=== PATIENT | male | born 1930 | race Caucasian/White ===

== ENCOUNTER 2017-05-20 15:55 | Inpatient (IN) | payer MEDICARE, OTHER ==
[~2017-05-20] VITALS: Ht 185.4 cm; Wt 109.5 kg
[2017-05-20 19:08] LABS: Urine Bacteria NONE SEEN /hpf (None Seen); Urine Blood Negative /uL (Negative); Urine Mucus FEW (None Seen); Urine Specific Gravity 1.023 (1.001-1.035); Urine WBC 3 /hpf (0 - 3)
[2017-05-20 19:12] LABS: Basophils # (auto) 0.2 uL; Basophils % (auto) 1.4 % (0.0-2.0); Eosinophils # (auto) 0.3 uL; Eosinophils % (auto) 2.9 % (0.0-7.0); Hematocrit 43.4 % (41.0-53.0); Hemoglobin 14.6 g/dL (13.5-17.5); Mean Corpuscular Hemoglobin 31.9 pg (28.0-32.0); Mean Corpuscular Hgb Conc. 33.8 g/dL (32.0-36.0); Mean Corpuscular Volume 94.5 fL (80.0-100.0); Monocytes # (auto) 1.1 uL; Neutrophils # (auto) 8.2 uL; Neutrophils % (auto) 69.7 % (37.0-80.0); Nucleated Red Blood Cells % 0.1 %; Platelet Count (auto) 170 10^3/uL (140-450); Red Blood Cells 4.59 10^6/uL (4.5-5.90); Red Cell Distribution Width 14.7 % (11.8-14.3); White Blood Cell 11.7 10^3/uL (4.4-10.8)
[2017-05-20 19:29] LABS: INR 0.95 (0.9-1.15); Partial Thromboplastin Time 29.7 sec (22.64-33.71); Prothrombin Time 10.3 sec (9.37-12.3)
[2017-05-20 19:35] LABS: Alanine Aminotransferase 25 U/L (16-61); Albumin 3.4 g/dL (3.4-5.0); Alkaline Phosphatase 75 U/L (45-117); Anion Gap 8 (5-15); Aspartate Aminotransferase 18 U/L (15-37); BUN/Creatinine Ratio 17.4; Bilirubin, Total 0.6 mg/dL (0.2-1.0); Blood Urea Nitrogen 23 mg/dL (7-18); Calcium 8.2 mg/dL (8.5-10.1); Carbon Dioxide 27 mmol/L (21-32); Chloride 105 mmol/L (98-107); GFR African American 66 mL/min; GFR Non-African American 55 mL/min; Glucose 124 mg/dL (74-106); Magnesium 2.9 mg/dL (1.6-2.6); Potassium 4.7 mmol/L (3.5-5.1); Sodium 140 mmol/L (136-145); Total Protein 7.1 g/dL (6.4-8.2)
[2017-05-20] MEDS ORDERED: ETOMIDATE (2MG/ML) 20ML VIAL IV ONE ×2 (20:04→20:15)
[2017-05-20] MEDS ORDERED: HYDROmorphone HCL 2 MG/ML VL IV ONE (20:15)
[2017-05-20] MEDS ORDERED: ONDANSETRON HCL 4 MG/2 ML VIAL IV ONE (20:15)
[2017-05-20] MEDS ORDERED: MORPHINE SULFATE 10 MG/ML INJ 1ML SDV IV PRN (23:30)
[2017-05-20] MEDS ORDERED: ACETAMINOPHEN 500 MG TAB PO PRN (23:30)
[2017-05-20] MEDS ORDERED: HYDROcodone-ACET 5/325MG TAB PO PRN (23:30)
[2017-05-20] MEDS ORDERED: ONDANSETRON HCL 4 MG/2 ML VIAL IV PRN (23:30)
[2017-05-21] VITALS (7 sets, daily range): BP systolic 124–137; BP diastolic 63–72
[2017-05-21] MEDS ORDERED: ENOXAPARIN SOD 40 MG/0.4 ML SYRINGE SC SCH (10:00)
[2017-05-21] MEDS ORDERED: DABI75CA3 PO (10:11)
[2017-05-21] MEDS ORDERED: SIMV-8 PO (10:11)
[2017-05-21] MEDS ORDERED: FLUT250M2 INH (10:11)
[2017-05-21] MEDS ORDERED: OXY5T GT (10:11)
[2017-05-21] MEDS ORDERED: METO25TA5 PO (10:11)
[2017-05-21] MEDS ORDERED: BACL10TA PO (10:11)
[2017-05-21] MEDS ORDERED: LEVO137T3 PO (10:11)
[2017-05-21] MEDS ORDERED: ESOM40CA39 PO (10:11)
[2017-05-21] MEDS ORDERED: FLUT50SP (10:11)
[2017-05-21] MEDS ORDERED: TAMS0.4C36 PO (10:11)
[2017-05-21] MEDS ORDERED: GABA-521 PO (10:11)
[2017-05-21 11:21] LABS: Basophils # (auto) 0 uL; Basophils % (auto) 0.5 % (0.0-2.0); Eosinophils # (auto) 0.4 uL; Eosinophils % (auto) 3.9 % (0.0-7.0); Hemoglobin 13.9 g/dL (13.5-17.5); Lymphocytes # (auto) 2.4 uL; Lymphocytes % (auto) 23.7 % (10.0-50.0); Mean Corpuscular Hemoglobin 31.4 pg (28.0-32.0); Monocytes % (auto) 10.3 % (0.0-12.0); Neutrophils # (auto) 6.2 uL; Neutrophils % (auto) 61.6 % (37.0-80.0); Platelet Count (auto) 169 10^3/uL (140-450); Red Blood Cells 4.41 10^6/uL (4.5-5.90); Red Cell Distribution Width 14.9 % (11.8-14.3); White Blood Cell 10.1 10^3/uL (4.4-10.8)
[2017-05-21 11:36] LABS: BUN/Creatinine Ratio 22.8; Calcium 8.3 mg/dL (8.5-10.1); Potassium 4.6 mmol/L (3.5-5.1)
[2017-05-21] MEDS ORDERED: THROAT LOZENGES(CEPASTAT) MT PRN (13:45)
[2017-05-21] MEDS ORDERED: TAMSULOSIN HYDROCHLORIDE 0.4 MG CAP PO SCH (18:00)
[2017-05-21] MEDS ORDERED: GABAPENTIN 300 MG CAP PO SCH (18:30)
[2017-05-21] MEDS: METOPROLOL TARTRATE 25 MG TAB PO SCH (21:49)
[2017-05-21] MEDS: DABIGATRAN 75 MG CAP PO SCH (21:50)
[2017-05-21] MEDS ORDERED: ATORVASTATIN 20 MG TAB PO SCH (22:00)
[2017-05-22 04:54] VITALS: BP 138/57
[2017-05-22] MEDS ORDERED: LEVOTHYROXINE SODIUM 112 MCG TAB PO SCH (07:00)
[2017-05-22] MEDS ORDERED: LEVOTHYROXINE SODIUM 25 MCG TAB PO SCH (07:00)
[2017-05-22 08:00] VITALS: BP 138/57
[2017-05-22 09:00] VITALS: BP 107/60
[2017-05-22] MEDS: DABIGATRAN 75 MG CAP PO SCH (09:59)
[2017-05-22] MEDS: METOPROLOL TARTRATE 25 MG TAB PO SCH (09:59)
[2017-05-22] MEDS ORDERED: PANTOPRAZOLE 40 MG TAB PO SCH (10:00)
[2017-05-22 11:18] VITALS: BP 107/60
== END 2017-05-22 12:15 | disposition home or self-care (01) | DRG 563 ==
LOC: EDBD 15:55 → ER 15:55 → OVERFLOW 15:56 → CENTRAL 05-21 01:30
PROVIDERS: ADMIT Nurse Practitioner Family; ATTEND Family Medicine
PROC: 0RSKXZZ Reposition Left Shoulder Joint, External Approach (ICD-10-PCS; principal; 2017-05-20)
DX: S43.015A Anterior dislocation of left humerus, initial encounter (principal); E83.51 Hypocalcemia; G62.9 Polyneuropathy, unspecified; I48.91 Unspecified atrial fibrillation; E03.9 Hypothyroidism, unspecified; E78.00 Pure hypercholesterolemia, unspecified; I12.9 Hypertensive chronic kidney disease with stage 1 through stage 4 chronic kidney disease, or unspecified chronic kidney disease; S42.302A Unspecified fracture of shaft of humerus, left arm, initial encounter for closed fracture; I25.10 Atherosclerotic heart disease of native coronary artery without angina pectoris; J32.9 Chronic sinusitis, unspecified; J44.9 Chronic obstructive pulmonary disease, unspecified; N18.3 Chronic kidney disease, stage 3 (moderate); N40.0 Benign prostatic hyperplasia without lower urinary tract symptoms; Y93.89 Activity, other specified; W18.09XA Striking against other object with subsequent fall, initial encounter; Y92.009 Unspecified place in unspecified non-institutional (private) residence as the place of occurrence of the external cause; Z82.49 Family history of ischemic heart disease and other diseases of the circulatory system; Z95.0 Presence of cardiac pacemaker; Z88.0 Allergy status to penicillin; Z88.8 Allergy status to other drugs, medicaments and biological substances
CPT/HCPCS: 23650; 36415; 70450; 71045; 73020; 73030; 80048; 80053; 81001; 82962; 83735; 84484; 85025; 85610; 85730; 93005; 96372; 99152; 99291; J2405

== ENCOUNTER 2019-02-12 12:22 | Inpatient (IN) | payer MEDICARE, OTHER ==
[~2019-02-12] VITALS: Ht 188 cm; Wt 100.6 kg
[~2019-02-12 12:22] MED LIST: BACL10TA PO; DABI75CA5 PO; ESOM40CA39 PO; FLUT250M2 INH; FLUT50SP; GABA-521 PO; LEVO137T3 PO; METO25TA5 PO; OXY5T GT; SIMV-8 PO; TAMS0.4C36 PO
[2019-02-12] MEDS ORDERED: SODIUM CHLORIDE 0.9% 1,000 ML IV ONE (12:41)
[2019-02-12 13:27] LABS: Basophils # (auto) 0.1 uL; Basophils % (auto) 0.9 % (0.0-2.0); Eosinophils # (auto) 0.3 uL; Eosinophils % (auto) 2.1 % (0.0-7.0); Hematocrit 46.5 % (41.0-53.0); Hemoglobin 15.3 g/dL (13.5-17.5); Lymphocytes # (auto) 2.2 uL; Lymphocytes % (auto) 17.2 % (10.0-50.0); Mean Corpuscular Hemoglobin 31.7 pg (28.0-32.0); Mean Corpuscular Hgb Conc. 32.9 g/dL (32.0-36.0); Mean Corpuscular Volume 96.3 fL (80.0-100.0); Monocytes # (auto) 1.1 uL; Monocytes % (auto) 8.4 % (0.0-12.0); Neutrophils # (auto) 9.3 uL; Neutrophils % (auto) 71.4 % (37.0-80.0); Platelet Count (auto) 159 10^3/uL (140-450); Red Blood Cells 4.83 10^6/uL (4.5-5.90); White Blood Cell 13.1 10^3/uL (4.4-10.8)
[2019-02-12 13:42] LABS: Alanine Aminotransferase 29 U/L (16-61); Albumin 3.1 g/dL (3.4-5.0); Anion Gap 6 (5-15); Aspartate Aminotransferase 21 U/L (15-37); BUN/Creatinine Ratio 21.9; Blood Urea Nitrogen 25 mg/dL (7-18); Calcium 8.9 mg/dL (8.5-10.1); Carbon Dioxide 28 mmol/L (21-32); Chloride 107 mmol/L (98-107); GFR African American 78 mL/min; GFR Non-African American 64 mL/min; Glucose 101 mg/dL (74-106); INR 0.99 (0.9-1.15); Partial Thromboplastin Time 32.1 sec (23.64-32.05); Sodium 141 mmol/L (136-145)
[2019-02-12 13:46] LABS: Alkaline Phosphatase 55 U/L (45-117); Bilirubin, Total 0.8 mg/dL (0.2-1.0); Total Protein 6.3 g/dL (6.4-8.2)
[2019-02-12 14:34] LABS: Urine Bacteria NONE SEEN /hpf (None Seen); Urine Blood 2+ /uL (Negative); Urine Mucus FEW (None Seen); Urine Specific Gravity 1.026 (1.001-1.035); Urine WBC None Seen /hpf (0 - 3)
[2019-02-12] MEDS ORDERED: IOHEXOL 350 MG/ML 100ML IJ ONE (16:27)
[2019-02-12] MEDS ORDERED: CAR3125T PO (16:39)
[2019-02-12] MEDS ORDERED: FLUT0.05 NAS (16:39)
[2019-02-12] MEDS ORDERED: DOCU100T15 PO (16:39)
[2019-02-12] MEDS ORDERED: DABI75CA5 PO (16:39)
[2019-02-12] MEDS ORDERED: PRE5T PO (16:39)
[2019-02-12] MEDS ORDERED: CALC667C PO (16:39)
[2019-02-12] MEDS ORDERED: DIGO0.1262 PO (16:39)
[2019-02-12] MEDS ORDERED: FLUT250M2 INH (16:39)
[2019-02-12] MEDS ORDERED: LEVO125T7 PO (16:39)
[2019-02-12] MEDS ORDERED: FINA5TAB4 PO (16:39)
[2019-02-12] MEDS ORDERED: ACETAMINOPHEN 500 MG TAB PO PRN (20:00)
[2019-02-12] MEDS ORDERED: MORPHINE SULF INJ 2 MG/ML SYRINGE 1ML IV PRN (20:00)
[2019-02-12] MEDS ORDERED: ALBUTEROL SULF 2.5 MG/0.5ML(0.5%) NEB SOLN NEB PRN (20:00)
[2019-02-12] MEDS ORDERED: ONDANSETRON HCL 4 MG/2 ML VIAL IV PRN (20:00)
[2019-02-12] MEDS ORDERED: DOCUSATE SOD 100 MG CAP PO PRN (20:00)
[2019-02-12] MEDS ORDERED: NITROGLYCERIN 0.4 MG SL TAB SL PRN (20:00)
[2019-02-12] MEDS ORDERED: IPRATROPIUM BROM 0.5 MG/2.5ML INH SOL NEB PRN (20:00)
[2019-02-12 21:00] VITALS: BP_SYST 140; BP_DIAS 80; BP_DIAS 83
--- NOTE | 2019-02-12 21:00 | NUR ---
Opening Shift Note Assumed care of patient, awake and alert. No S/S of distress/SOB or pain. Instructed on POC and to call for assist PRN, will continue to monitor for changes Q1hr and PRN.
--- NOTE | 2019-02-12 21:00 | NUR ---
MS admit from ER CAMELIA MCCARTHY admitted to tele/MS after SBAR received. Patient oriented to Shayy salomon RN, unit, room, bed, and unit policies regarding patient care and visiting hours. Patient weighed by bed scale and encouraged to call if they need something. All questions and concerns addressed, patient verbalized understanding. Note: Came per stretcher awake alert oriented x 3,placed in the bed comfortably, vital signs checked.
[2019-02-12] MEDS: OXYCODONE HCL 5MG TAB GT SCH (21:26)
[2019-02-12] MEDS: ATORVASTATIN 20 MG TAB PO SCH (21:27)
[2019-02-12] MEDS: DABIGATRAN 75 MG CAP PO SCH (21:28)
[2019-02-12 21:29] LABS: Folate (Folic Acid) 19.15 ng/mL (5.38-24)
[2019-02-12] MEDS: CARVEDILOL 3.125 MG TAB PO SCH (21:29)
[2019-02-12] MEDS: DOCUSATE SOD 100 MG CAP PO SCH (21:29)
[2019-02-12] MEDS ORDERED: GABAPENTIN 600 MG PO SCH (22:00)
[2019-02-13 00:10] VITALS: BP 140/83
[2019-02-13 05:00] VITALS: BP 124/71
[2019-02-13] MEDS: OXYCODONE HCL 5MG TAB GT SCH ×3 (06:00→17:18)
--- NOTE | 2019-02-13 06:10 | NUR ---
Picture taken of the right 2nd digit finger(dog bite) per patient, cleansed with wound cleanser ,dried with gauze covered with band aid.
--- NOTE | 2019-02-13 07:10 | NUR ---
REPORT GIVEN TO Esequiel ELLIS, PATIENT IS RESTING NO DISTRESS.
--- NOTE | 2019-02-13 08:22 | NUR ---
Respiratory note: PT AWAKE, AND ALERT. NO RESPIRATORY DISTRESS NOTED. SPO2 96% ON RA, HR 77, RR 18, BS CLEAR T/O. PRN MEDNEB TX NOT INDICATED AT THIS TIME. PT INFORMED TO PUSH CALL BUTTON IF INCREASED WOB, SOB, OR WHEEZING OCCUR.
[2019-02-13 09:00] VITALS: BP 135/77
[2019-02-13] MEDS: HYDROcodone-ACET 5/325MG TAB PO PRN (09:17)
[2019-02-13] MEDS: DOCUSATE SOD 100 MG CAP PO SCH ×2 (09:17→22:14)
[2019-02-13] MEDS: FINASTERIDE 5 MG TAB PO SCH (09:17)
[2019-02-13] MEDS: METOPROLOL TARTRATE 25 MG TAB PO SCH (09:18)
[2019-02-13] MEDS: CARVEDILOL 3.125 MG TAB PO SCH ×2 (09:19→22:16)
[2019-02-13] MEDS: DIGOXIN 0.125 MG TAB PO SCH (09:19)
--- NOTE | 2019-02-13 09:35 | NUR ---
assessment Patient is a 89 year old male who is alert and oriented. Patients cognitive abilities are intact. Prior to admission patient lived home with his Estephanie and functioned with her assistance. Per patient he has a scooter, w/c, cane and fww for home use. Patients PCP is Dr Hernandez. Patient informed me he fell Monday do to weakness. Per patients she would like patient to go to SNF for rehab post discharge. Estephanie is requesting [facility] Patient to be assessed by PT. I informed patient and his that patient has a ss consult for limited support system. Patient and Estephanie informed me that Estephanie is patients caregiver. Estephanie is patients childrens age per patient and is capable of caring for him. Patient informed me he feels safe at home and has no issues except his weakness at this time. I informed patient he has a right to speak to a social human services assistants regarding all care. I informed patient he has a right to participate in any and all discharge planning. Patient has a POA and advanced directive. Patient verbalized understanding and agreed to discharge plan. Addendum: 02/14/19 at 0942 by Shani KRAFT Amended: Links added.
[2019-02-13] MEDS ORDERED: predniSONE 5 MG TAB PO ONE (10:00)
[2019-02-13] MEDS: DABIGATRAN 75 MG CAP PO SCH ×2 (10:06→22:14)
--- NOTE | 2019-02-13 11:15 | NUR ---
indwelling junior catheter, fr 16 placed by nursing care attendant with their instructor.
--- NOTE | 2019-02-13 12:19 | NUR ---
Discharge instructions given as ordered. Encourage to follow up with PMD as instructed. All questions and concerns addressed. Patient verbalized understanding. Medication reconciliation form completed and copy given to patient. IV removed with catheter intact, pressure dressing applied. Patient taken to vehicle via wheelchair with all personal belongings, accompanied by staff and family member. No distress noted at time of departure. Addendum: 02/13/19 at 1223 by CALEB CANTU RN RN incorrect patient
[2019-02-13] MEDS: predniSONE 5 MG TAB PO SCH (12:42)
[2019-02-13 13:00] VITALS: BP 117/74
--- NOTE | 2019-02-13 15:15 | NUR ---
D/C Planning Per Ss consult for SNF placement for rehab. Pt Estephanie was at bedside when Information and choice letter was given to Pt. Per Pt and Pt Estephanie requested [facility]. Pt and Estephanie verbalize understanding. Contacted [facility] Ph:( [phone]) Fax:) faxed medical records. Per Anabela from [facility] Pt has been accepted however Pt needs a 3 day qualification in order to be transfer to facility.
[2019-02-13] MEDS: TAMSULOSIN HYDROCHLORIDE 0.4 MG CAP PO SCH (16:36)
[2019-02-13] MEDS: GABAPENTIN 300 MG CAP PO SCH (16:36)
[2019-02-13 17:00] VITALS: BP 142/95
--- NOTE | 2019-02-13 17:21 | NUR ---
RAC IV access infiltrated, removed. New IV access to left hand g 22 placed.
--- NOTE | 2019-02-13 19:45 | NUR ---
Opening Shift Note Assumed care of patient, awake and alert oriented x4. No S/S of distress/SOB or pain noted. Instructed on POC and to call for assist PRN. Bed is in lowest locked position with bed rails up x2 and call light is within reach of the patient.
[2019-02-13 22:00] VITALS: BP 111/67
[2019-02-13] MEDS ORDERED: OXYCODONE HCL 5MG TAB GT PRN (22:00)
[2019-02-13] MEDS: ATORVASTATIN 20 MG TAB PO SCH (22:15)
--- NOTE | 2019-02-14 02:01 | NUR ---
RT NOTE: PT ASSESSED FOR PRN TX @ THIS TIME. TX NOT INDICATED. PT RESTING COMFORTABLY. SPO2 95% ON ROOM AIR, HR 78, RR 20. NO SOB OR DISTRESS NOTED.
[2019-02-14 05:00] VITALS: BP 113/79
--- NOTE | 2019-02-14 07:50 | NUR ---
Patient in bed, awake, oriented x4. Generalized weakness noted. About 1,350 ml of clear, elsa urine emptied from the Berrios catheter.
[2019-02-14 09:00] VITALS: BP 124/78
[2019-02-14] MEDS: HYDROcodone-ACET 5/325MG TAB PO PRN ×2 (09:14→14:41)
--- NOTE | 2019-02-14 09:14 | NUR ---
[place] 5/325 PO given for pain.
[2019-02-14] MEDS: predniSONE 5 MG TAB PO SCH (10:00)
--- NOTE | 2019-02-14 10:22 | NUR ---
RT NOTE: PRN BREATHING TX. NOT INDICATED AT THIS TIME. NO S/S OF RESPIRATORY DISTRESS NOTED. PT. HR 73, RR 16, POX 95%. BREATH SOUNDS ARE CLEAR/DIMINISHED T/O. PT. AWARE TO NOTIFY RN IF BREATHING TX. IS NEEDED.
--- NOTE | 2019-02-14 10:39 | NUR ---
Dr. Torres at bedside. Patient complained that knee pain increased when he walks.
[2019-02-14] MEDS: DOCUSATE SOD 100 MG CAP PO SCH ×2 (11:00→22:00)
[2019-02-14] MEDS: FINASTERIDE 5 MG TAB PO SCH (11:00)
[2019-02-14] MEDS: DIGOXIN 0.125 MG TAB PO SCH (11:01)
[2019-02-14] MEDS: CARVEDILOL 3.125 MG TAB PO SCH ×2 (11:01→22:02)
[2019-02-14] MEDS: METOPROLOL TARTRATE 25 MG TAB PO SCH (11:02)
[2019-02-14] MEDS: DABIGATRAN 75 MG CAP PO SCH ×2 (11:03→21:59)
--- NOTE | 2019-02-14 11:58 | NUR ---
Patient complained of upset stomach, asking for antacid. Will page the MD.
--- NOTE | 2019-02-14 12:03 | NUR ---
Paged Dr. Torres. Waiting for MD to call back.
[2019-02-14] MEDS ORDERED: FAMOTIDINE 20 MG TAB PO ONE (12:15)
[2019-02-14 13:00] VITALS: BP 120/60
--- NOTE | 2019-02-14 13:43 | NUR ---
Patient stated he's in pain, asked for [place] 5/325. Explained to patient he's not due for [place] 5/325. Family member verbalized "I thought it's as needed. And he used to take Oxycodone." Explained to family member the [place] 5/325 is as needed every six hours as ordered by the doctor, and Oxycodone was discontinued by the doctor. Patient said he can take Tylenol. Tylenol PO given for pain as ordered.
--- NOTE | 2019-02-14 14:10 | NUR ---
Patient wanted the doctor to know that he needs his [place] 5/325 not every six hours because it's hard for him to bear the pain, stated Tylenol does not help much with the pain. Will page the MD.
--- NOTE | 2019-02-14 14:12 | NUR ---
Paged Dr. Torres. Waiting for MD to call back.
--- NOTE | 2019-02-14 14:18 | NUR ---
Dr. Torres came over. to adjust the frequency of [place] 5/325 PO.
--- NOTE | 2019-02-14 14:41 | NUR ---
Patient stated his pain level at 7/10 at this time. [place] 5/325 PO given as ordered.
[2019-02-14 17:43] VITALS: BP 106/72
[2019-02-14] MEDS: GABAPENTIN 300 MG CAP PO SCH (18:01)
[2019-02-14] MEDS: TAMSULOSIN HYDROCHLORIDE 0.4 MG CAP PO SCH (18:02)
--- NOTE | 2019-02-14 18:32 | NUR ---
Dr. Lauren came over. made aware patient asked for another stool softener. Patient had Colace this morning as ordered but no bowel movement yet. Dr. Lauren ordered Lactulose 30 ml Q4 PRN until patient passes stool.
--- NOTE | 2019-02-14 18:50 | NUR ---
RT NOTE PT WAS SEEN BY RT FOR PRN HHN TX. PT STATES NO TX NEEDED. HR 73, RR 16, BS CLEAR. POX 97% ON RA.. CONT ORDERED. NO PRN TX INDICATED AT THIS TIME Addendum: 02/14/19 at 1904 by Loni Altamirano RT Amended: Links added.
[2019-02-14] MEDS: LACTULOSE 20Gm/30ML SOLN PO PRN (22:00)
[2019-02-14] MEDS: ATORVASTATIN 20 MG TAB PO SCH (22:01)
[2019-02-14] MEDS: FAMOTIDINE 20 MG TAB PO SCH (22:01)
[2019-02-15 05:00] VITALS: BP 136/85
--- NOTE | 2019-02-15 07:01 | NUR ---
Respiratory note: ASSESSED PT FOR PRN MED NEB TX. PT IS CURRENTLY ON ROOM AIR: HR 94, RR 16, SPO2 92% WITH CLEAR BS T/O. PT SHOWS NO S/S OF SOB OR RESPIRATORY DISTRESS. MED NEB TX NOT INDICATED AT THIS TIME. INFORMED PT IF SOB OCCURS TO CONTACT RESPIRATORY. WILL CONTINUE TO MONITOR.
[2019-02-15] MEDS: HYDROcodone-ACET 5/325MG TAB PO PRN ×3 (08:31→17:02)
--- NOTE | 2019-02-15 08:31 | NUR ---
Patient stated his right knee pain at 10/10 at this time. [place] 5/325 PO given for pain as ordered.
[2019-02-15 09:00] VITALS: BP 116/77
--- NOTE | 2019-02-15 09:05 | NUR ---
Assisted the patient to the bedside commode.
--- NOTE | 2019-02-15 09:10 | NUR ---
Patient back in bed. No stools noted on the bedside commode.
--- NOTE | 2019-02-15 09:15 | NUR ---
Zofran Inj given for nausea.
[2019-02-15] MEDS: DIGOXIN 0.125 MG TAB PO SCH (09:16)
[2019-02-15] MEDS: predniSONE 5 MG TAB PO SCH (09:16)
[2019-02-15] MEDS: FINASTERIDE 5 MG TAB PO SCH (09:16)
[2019-02-15] MEDS: FAMOTIDINE 20 MG TAB PO SCH ×2 (09:16→22:14)
[2019-02-15] MEDS: DOCUSATE SOD 100 MG CAP PO SCH ×2 (09:16→22:14)
[2019-02-15] MEDS: DABIGATRAN 75 MG CAP PO SCH ×2 (09:16→22:13)
[2019-02-15] MEDS: METOPROLOL TARTRATE 25 MG TAB PO SCH (09:17)
[2019-02-15] MEDS: CARVEDILOL 3.125 MG TAB PO SCH ×2 (09:17→22:14)
--- NOTE | 2019-02-15 10:35 | NUR ---
Dr. Torres at bedside.
--- NOTE | 2019-02-15 11:15 | NUR ---
Nutrition Assessment Notes please see attached link for complete assessment Estimated need based on BW (101 kg): 2323-2525kcal (23-25 kcal/kg BW), 101-111 gms protein (1.0-1.1 g/kg BW). Will continue to monitor pertinent labs and reassess nutrient need prn Addendum: 02/15/19 at [address] Amended: Links added.
--- NOTE | 2019-02-15 12:40 | NUR ---
Patient sitting on bed, eating lunch. Patient denies pain at this time.
--- NOTE | 2019-02-15 12:58 | NUR ---
Patient stated his right knee/leg pain level at 10/10. [place] 5/325 PO given for pain as ordered.
--- NOTE | 2019-02-15 12:59 | NUR ---
Patient off unit, taken to Radiology.
[2019-02-15 13:00] VITALS: BP 99/66
--- NOTE | 2019-02-15 15:28 | NUR ---
PT REFUSED PHYSICAL THERAPY DUE TO C/O RIGHT KNEE PAIN. Signed: 02/15/19 at 1529 by MARIA ELENA CHAPIN PTT <Co-Signature Required> Co-Signed: 02/15/19 at 1529 by Samuel Ruiz PT Addendum: 02/15/19 at 1529 by MARIA ELENA CHAPIN PTT Amended: Links added.
[2019-02-15] MEDS: LACTULOSE 20Gm/30ML SOLN PO PRN (16:04)
--- NOTE | 2019-02-15 16:04 | NUR ---
Patient stated he's constipated. No bowel movement yet. Lactulose given for constipation as ordered.
[2019-02-15 17:00] VITALS: BP 114/73
--- NOTE | 2019-02-15 17:02 | NUR ---
Patient stated his right knee/leg pain level at 10/10 at this time. [place] 5/325 PO given for pain as ordered.
[2019-02-15] MEDS: GABAPENTIN 300 MG CAP PO SCH (18:20)
[2019-02-15] MEDS: TAMSULOSIN HYDROCHLORIDE 0.4 MG CAP PO SCH (18:20)
--- NOTE | 2019-02-15 19:40 | NUR ---
Opening Shift Note Assumed care of patient, awake and alert. No S/S of distress/SOB or pain. Bed in lowest locked position, side rails up x2, call light within reach. Instructed on POC and to call for assist PRN, will continue to monitor for changes Q1hr and PRN.
[2019-02-15 21:47] VITALS: BP 114/73
[2019-02-15 22:00] VITALS: BP 102/72
[2019-02-15] MEDS: ATORVASTATIN 20 MG TAB PO SCH (22:14)
--- NOTE | 2019-02-15 22:14 | NUR ---
Pain Patient reporting 3/10 pain to right knee, refusing pain medication at this time. Patient instructed to call before pain rises to an unbearable level, patient verbalized understanding. No s/s of distress, will continue to monitor.
[2019-02-16] MEDS: HYDROcodone-ACET 5/325MG TAB PO PRN ×4 (01:05→17:03)
--- NOTE | 2019-02-16 02:25 | NUR ---
Closing Note Patient lying in bed, eyes closed, respirations even and unlabored, appears asleep. No s/s of distress. Bed in lowest locked position, side rails up x2, call light within reach. Care endorsed to Renee RN for continuation of care.
--- NOTE | 2019-02-16 02:25 | NUR ---
Report received from Jani Lind to assume care.
--- NOTE | 2019-02-16 02:26 | NUR ---
Opening Shift Note Assumed care of patient, asleep. No S/S of distress/SOB or pain. Instructed on POC and to call for assist PRN, will continue to monitor for changes Q1hr and PRN.
[2019-02-16 05:00] VITALS: BP_SYST 111; BP_SYST 122; BP_DIAS 71; BP_DIAS 73
--- NOTE | 2019-02-16 07:25 | NUR ---
Report given to Jani Jefferson ,patient is resting no distress.
--- NOTE | 2019-02-16 08:36 | NUR ---
Patient stated his right knee/leg pain level at 10/10 at this time. [place] 5/325 PO given for pain as ordered.
[2019-02-16 09:00] VITALS: BP 107/66
--- NOTE | 2019-02-16 09:20 | NUR ---
Dr. Mcgill at bedside for follow up Ortho Consult. explaining to the patient the results of the NM Bone Scan.
--- NOTE | 2019-02-16 09:29 | NUR ---
Dr. Mcgill made aware patient may be transferred to [facility]. said he gave instructions to the patient for follow up with Ortho as an outpatient if needed, it's okay if patient is going to a SNF.
[2019-02-16] MEDS: DIGOXIN 0.125 MG TAB PO SCH (09:55)
[2019-02-16] MEDS: DABIGATRAN 75 MG CAP PO SCH (09:55)
[2019-02-16] MEDS: CARVEDILOL 3.125 MG TAB PO SCH (09:56)
[2019-02-16] MEDS: predniSONE 5 MG TAB PO SCH (09:57)
[2019-02-16] MEDS: METOPROLOL TARTRATE 25 MG TAB PO SCH (09:57)
[2019-02-16] MEDS: FINASTERIDE 5 MG TAB PO SCH (09:57)
[2019-02-16] MEDS: FAMOTIDINE 20 MG TAB PO SCH (09:57)
[2019-02-16] MEDS: DOCUSATE SOD 100 MG CAP PO SCH (09:57)
--- NOTE | 2019-02-16 10:06 | NUR ---
RT NOTE: WENT TO PTS ROOM TO ASSESS FOR PRN BREATHING TX, NO S/S OF SOB. HR 82, RR 18, SPO2 96% ON RA WILL CONTINUE TO MONITOR PT.
--- NOTE | 2019-02-16 12:26 | NUR ---
Patient stated his right knee/leg in pain. [place] 5/325 PO given for pain.
[2019-02-16] MEDS: LACTULOSE 20Gm/30ML SOLN PO PRN ×2 (12:30→18:55)
--- NOTE | 2019-02-16 12:30 | NUR ---
Lactulose Liquid PO given for constipation. at bedside.
[2019-02-16 13:00] VITALS: BP 93/60
--- NOTE | 2019-02-16 14:37 | NUR ---
Patient stated he wants to go home if discharged by the doctor, refused to go to [facility]. Waiting for Dr. Lopez to come over.
--- NOTE | 2019-02-16 16:35 | NUR ---
Dr. Lopez at bedside. MD to discharge the patient today, to prescribe pain medication, follow up with Dr. Mcgill's office for Ortho. Patient said his will pick him up later.
--- NOTE | 2019-02-16 16:35 | NUR ---
Dr. Lopez ordered to remove the Berrios catheter. About 850 ml of clear, yellowish urine collected from the Berrios catheter bag.
[2019-02-16 17:00] VITALS: BP 100/56
[2019-02-16] MEDS: GABAPENTIN 300 MG CAP PO SCH (17:02)
[2019-02-16] MEDS: TAMSULOSIN HYDROCHLORIDE 0.4 MG CAP PO SCH (17:02)
--- NOTE | 2019-02-16 18:00 | NUR ---
Patient requested for Flu shot.
[2019-02-16] MEDS ORDERED: INFLUENZA QUAD 2019-2020 0.5ml SYRG IM ONE (18:15)
[2019-02-16 18:27] VITALS: BP 107/66
[2019-02-16 18:40] VITALS: BP 107/66
--- NOTE | 2019-02-16 18:56 | NUR ---
Discharge instructions given as ordered. Encourage to follow up with PMD as instructed. All questions and concerns addressed. Patient verbalized understanding. Medication reconciliation form completed and copy given to patient. Flu vaccine given. IV removed with catheter intact, pressure dressing applied, Berrios catheter removed. Patient taken to vehicle via wheelchair with all personal belongings, accompanied by staff and family member. No distress noted at time of departure.
== END 2019-02-16 18:57 | disposition home or self-care (01) | DRG 554 ==
LOC: EDBD 12:22 → ER 12:22 → OVERFLOW 12:23 → CENTRAL 21:44
PROVIDERS: ADMIT Nurse Practitioner Acute Care; ATTEND Internal Medicine
DX: M17.11 Unilateral primary osteoarthritis, right knee (principal); E44.1 Mild protein-calorie malnutrition; I48.92 Unspecified atrial flutter; I13.0 Hypertensive heart and chronic kidney disease with heart failure and stage 1 through stage 4 chronic kidney disease, or unspecified chronic kidney disease; D68.69 Other thrombophilia; D72.829 Elevated white blood cell count, unspecified; E03.9 Hypothyroidism, unspecified; E78.00 Pure hypercholesterolemia, unspecified; E78.5 Hyperlipidemia, unspecified; I25.10 Atherosclerotic heart disease of native coronary artery without angina pectoris; I48.91 Unspecified atrial fibrillation; I50.9 Heart failure, unspecified; Z96.653 Presence of artificial knee joint, bilateral; E66.9 Obesity, unspecified; N18.2 Chronic kidney disease, stage 2 (mild); J44.9 Chronic obstructive pulmonary disease, unspecified; K59.00 Constipation, unspecified; Z95.0 Presence of cardiac pacemaker; Z95.5 Presence of coronary angioplasty implant and graft; Z88.0 Allergy status to penicillin; Z88.8 Allergy status to other drugs, medicaments and biological substances; Z79.899 Other long term (current) drug therapy; Z79.01 Long term (current) use of anticoagulants; Z68.28 Body mass index [BMI] 28.0-28.9, adult; Z23 Encounter for immunization
CPT/HCPCS: 36415; 51702; 71045; 71275; 72192; 73590; 73700; 78315; 80053; 80162; 81001; 82533; 82746; 83880; 84154; 84425; 84443; 84484; 85025; 85610; 85730; 87081; 93005; 93926; 93971; 97163; G0378; J2405